=== PATIENT | male | born 1970 | race Caucasian/White ===

== ENCOUNTER 2021-02-06 12:38 | Emergency (ER) | payer MEDICAID ==
[~2021-02-06] VITALS: Ht 152.4 cm; Wt 72.1 kg
[2021-02-06] MEDS ORDERED: KETOROLAC 30 MG/ML VIAL IM ONE (13:15)
[2021-02-06 13:19] VITALS: BP 136/100
[2021-02-06] MEDS ORDERED: KETOROLAC 30 MG/ML VIAL ONE (14:31)
[2021-02-06] MEDS ORDERED: NAPR-54 PO ×2 (15:05→15:16)
[2021-02-06 15:10] VITALS: BP 130/85
--- NOTE | 2021-02-06 15:10 | NUR ---
Patient discharged with v/s stable. Written and verbal after care instructions given FLANK PAIN and explained. Patient alert, oriented and verbalized understanding of instructions. Ambulatory with steady gait. All questions addressed prior to discharge. ID band removed. Patient advised to follow up with PMD. Rx of NAPROXEN given. Patient educated on indication of medication including possible reaction and side effects. Opportunity to ask questions provided and answered.
== END 2021-02-06 15:10 | disposition home or self-care (01) ==
LOC: MED 12:38
DX: R10.9 Unspecified abdominal pain (principal); E11.9 Type 2 diabetes mellitus without complications; I10 Essential (primary) hypertension; Z79.899 Other long term (current) drug therapy
CPT/HCPCS: 81002; 99282; J1885

== ENCOUNTER 2022-05-13 06:49 | Day surgery (SDC) | payer OTHER ==
[~2022-05-13] VITALS: Ht 160 cm; Wt 75.3 kg
[~2022-05-13 06:49] MED LIST: NAPR-54 PO
[2022-05-13] MEDS ORDERED: fentaNYL citrate 0.05 MG/ML VIAL ONE (07:48)
[2022-05-13] MEDS: fentaNYL citrate 0.05 MG/ML VIAL IVP ONE (07:56)
[2022-05-13] MEDS: LIDOCAINE 2% 100 MG/5 ML UJET TP ONE (08:03)
== END 2022-05-13 08:41 | disposition home or self-care (01) ==
LOC: MMU 06:49 → MDS 06:49
PROVIDERS: ATTEND Internal Medicine Gastroenterology
DX: Z12.11 Encounter for screening for malignant neoplasm of colon (principal); I10 Essential (primary) hypertension; E11.9 Type 2 diabetes mellitus without complications; E78.5 Hyperlipidemia, unspecified; Z79.84 Long term (current) use of oral hypoglycemic drugs; Z79.899 Other long term (current) drug therapy; Z20.822 Contact with and (suspected) exposure to COVID-19
CPT/HCPCS: 45378; 87426; J3010